=== PATIENT | male | born 1960 | race Caucasian/White ===

== ENCOUNTER 2018-10-02 12:59 | Inpatient (IN) | payer MEDICAID, OTHER ==
[~2018-10-02] VITALS: Ht 172.7 cm; Wt 75.7 kg
[2018-10-02] MEDS ORDERED: SODIUM CHLORIDE 0.9% 1,000 ML IV ONE (17:45)
[2018-10-02 17:50] LABS: EOSINOPHILS % 1.2 % (0.0-5.0); HEMATOCRIT. 47.4 % (42.0-52.0); HEMOGLOBIN. 15.8 g/dL (14.0-18.0); MEAN CORPUSCULAR HEMOGLOBIN 29.9 pg (28.0-32.0); MEAN CORPUSCULAR VOLUME 89.8 fL (80.0-94.0); MEAN PLATELET VOLUME 8.6 fl (7.4-10.4); MONOCYTES % 9.9 % (2.0-8.0); NEUTROPHILS % 60.9 % (40.0-76.0); PLATELET 240 x1000/uL (130-400); RED BLOOD CELL COUNT 5.27 mill/uL (4.7-6.1); RED CELL DISTRIBUTION WIDTH 14.7 % (11.6-14.6)
[2018-10-02 17:56] LABS: CHLORIDE 105 mEq/L (98-107)
[2018-10-02] MEDS ORDERED: HYDROCODONE/ACETAMINOPHEN 5/325MG TABLET PO ONE (18:15)
[2018-10-02] MEDS ORDERED: ASPIRIN 81MG TABLET PO ONE (18:45)
[2018-10-02] MEDS ORDERED: FUROSEMIDE 40MG/4ML VIAL IVP ONE (18:45)
[2018-10-02 20:56] LABS: CLARITY URINE CLEAR (CLEAR); COLOR URINE YELLOW (YELLOW); KETONES URINE NEGATIVE (NEGATIVE); LEUKOCYTE ESTERASE URINE NEGATIVE (NEGATIVE); NITRITE URINE NEGATIVE (NEGATIVE); OCCULT BLOOD URINE NEGATIVE (NEGATIVE); PROTEIN URINE NEGATIVE (NEGATIVE); SPECIFIC GRAVITY URINE 1.006 (1.005-1.030); UROBILINOGEN URINE 0.2 E.U./dL (0.2-1.0)
[2018-10-02] MEDS ORDERED: NA PHOS,M-B/NA PHOS,DI-BA ENEMA 118ML PR PRN (22:30)
[2018-10-02] MEDS ORDERED: DIPHENHYDRAMINE 50MG/ML VIAL IV PRN (22:30)
[2018-10-02] MEDS ORDERED: CLONIDINE 0.1MG TABLET PO PRN (22:30)
[2018-10-02] MEDS ORDERED: IPRATROPIUM/ALBUTEROL 0.5-3(2.5)MG/3ML NEB INH PRN (22:30)
[2018-10-02] MEDS ORDERED: DOCUSATE SODIUM 100MG CAPSULE PO PRN (22:30)
[2018-10-02] MEDS ORDERED: GUAIFENESIN 200MG/10ML SUGAR FREE UDC PO PRN (22:30)
[2018-10-02] MEDS ORDERED: ACETAMINOPHEN 650MG/20.3ML UDC GT PRN (22:30)
[2018-10-02] MEDS ORDERED: ACETAMINOPHEN 325MG TABLET PO PRN (22:30)
[2018-10-02] MEDS ORDERED: MAGNESIUM/ALUMINUM HYDROXIDE/SIMETHICONE 30ML UDC PO PRN (22:30)
[2018-10-02] MEDS ORDERED: ONDANSETRON HCL 4MG/2ML INJ IV PRN (22:30)
[2018-10-02] MEDS ORDERED: ACETAMINOPHEN 650MG SUPP PR PRN (22:30)
[2018-10-02 23:37] LABS: *BARBITURATES SCREEN URINE NEGATIVE (NEGATIVE)
[2018-10-02 23:38] LABS: *AMPHETAMINES SCREEN URINE PRESUMTIVE POSITIVE (NEGATIVE); *BENZODIAZEPINES SCREEN URINE NEGATIVE (NEGATIVE); *COCAINE SCREEN URINE NEGATIVE (NEGATIVE); METHADONE URINE SCREEN NEGATIVE (NEGATIVE); OPIATES URINE SCREEN NEGATIVE (NEGATIVE); PHENCYCLIDINE URINE SCREEN NEGATIVE (NEGATIVE)
[2018-10-02 23:39] LABS: CANNABINOID URINE SCREEN NEGATIVE (NEGATIVE)
[2018-10-03 00:30] VITALS: BP 131/95
[2018-10-03 00:32] VITALS: BP 131/95
[2018-10-03 04:00] VITALS: BP 116/87
[2018-10-03] MEDS: SODIUM CHLORIDE 0.9% INJ 3ML FLUSH IVF SCH ×3 (06:19→22:28)
[2018-10-03] MEDS: FUROSEMIDE 40MG/4ML VIAL IV SCH ×2 (06:19→17:42)
[2018-10-03] MEDS ORDERED: PNEUMOCOCCAL 23-VAL P-SAC VAC 0.5 ML IM ONE (08:00)
[2018-10-03 09:10] LABS: BASOPHILS % 0.8 % (0.0-2.0); HEMATOCRIT. 49.1 % (42.0-52.0); HEMOGLOBIN. 16.6 g/dL (14.0-18.0); MEAN CORPUSCULAR VOLUME 88.9 fL (80.0-94.0); MEAN PLATELET VOLUME 8.6 fl (7.4-10.4); MONOCYTES % 10.4 % (2.0-8.0); NEUTROPHILS % 73.8 % (40.0-76.0); PLATELET 235 x1000/uL (130-400); RED BLOOD CELL COUNT 5.52 mill/uL (4.7-6.1); RED CELL DISTRIBUTION WIDTH 14.7 % (11.6-14.6)
[2018-10-03] MEDS: ENOXAPARIN 40MG/0.4ML SYR SUBCUT SCH (09:36)
[2018-10-03 09:38] LABS: CHLORIDE 103 mEq/L (98-107)
[2018-10-03 09:47] LABS: LDL CHOLESTEROL 62 mg/dL (5-100)
[2018-10-03 09:48] LABS: CREATINE KINASE 54 IU/L (39-308); HDL CHOLESTEROL 42 mg/dL (40-59)
[2018-10-03 09:51] LABS: CREATINE KINASE MB FRACTION 3.3 ng/mL (0.5-3.6)
[2018-10-03] MEDS ORDERED: INFLUENZA VIRUS VACCINE(AFLURIA) 0.5ML SYR IM ONE (10:00)
[2018-10-03 11:46] LABS: T4 FREE 1.29 ng/dL (0.76-1.46)
[2018-10-03] MEDS: LOSARTAN POTASSIUM 25 MG TABLET PO SCH (14:32)
[2018-10-03 15:35] LABS: CREATINE KINASE MB FRACTION 2.9 ng/mL (0.5-3.6)
[2018-10-03] MEDS: HYDROCODONE/ACETAMINOPHEN 5/325MG TABLET PO PRN (19:32)
[2018-10-03 20:00] VITALS: BP 114/78
[2018-10-03] MEDS: CARVEDILOL 3.125 MG TABLET PO SCH (22:28)
[2018-10-04] VITALS (7 sets, daily range): BP systolic 82–125; BP diastolic 52–91
[2018-10-04] MEDS: SODIUM CHLORIDE 0.9% INJ 3ML FLUSH IVF SCH ×2 (05:13→14:00)
[2018-10-04] MEDS: LOSARTAN POTASSIUM 25 MG TABLET PO SCH (09:04)
[2018-10-04] MEDS: CARVEDILOL 3.125 MG TABLET PO SCH (09:04)
[2018-10-04] MEDS: FUROSEMIDE 40MG/4ML VIAL IV SCH ×2 (09:05→17:00)
[2018-10-04] MEDS: ENOXAPARIN 40MG/0.4ML SYR SUBCUT SCH (09:05)
[2018-10-04] MEDS: HYDROCODONE/ACETAMINOPHEN 5/325MG TABLET PO PRN (10:19)
[2018-10-04] MEDS ORDERED: COR3 PO (12:35)
[2018-10-04] MEDS ORDERED: LOSA25TA3 PO (12:35)
[2018-10-04] MEDS ORDERED: FURO-151 MT (12:37)
== END 2018-10-04 20:05 | disposition home or self-care (01) | DRG 194 ==
LOC: ER 13:01 → EDBEDREQ 22:18 → ENRESERV 23:18 → 5WST 10-03 01:47
PROVIDERS: ADMIT Family Medicine; ATTEND Family Medicine
DX: I11.0 Hypertensive heart disease with heart failure (principal); E44.1 Mild protein-calorie malnutrition; I50.9 Heart failure, unspecified; F17.200 Nicotine dependence, unspecified, uncomplicated; L97.529 Non-pressure chronic ulcer of other part of left foot with unspecified severity; F10.10 Alcohol abuse, uncomplicated; F15.10 Other stimulant abuse, uncomplicated; L97.428 Non-pressure chronic ulcer of left heel and midfoot with other specified severity; Z68.25 Body mass index [BMI] 25.0-25.9, adult; W89.0XXA Exposure to welding light (arc), initial encounter; Y93.89 Activity, other specified; Y92.89 Other specified places as the place of occurrence of the external cause; Y99.8 Other external cause status
CPT/HCPCS: 36415; 71045; 80061; 80305; 82550; 82553; 83036; 83605; 83880; 84439; 84443; 84484; 85379; 93005; 93306; 93970; 96374; 99285; J1650; J1940; J7030

== ENCOUNTER 2019-03-17 15:44 | Emergency (ER) | payer MEDICAID ==
[~2019-03-17] VITALS: Ht 172.7 cm; Wt 72.0 kg
[~2019-03-17 15:44] MED LIST: COR3 PO; FURO-151 MT; LOSA25TA3 PO
[2019-03-17] MEDS ORDERED: IBUPROFEN 600MG TABLET PO ONE (16:30)
[2019-03-17 16:41] VITALS: BP 90/51
== END 2019-03-17 17:41 | disposition home or self-care (01) ==
LOC: ER 15:53
DX: M25.552 Pain in left hip (principal); Z79.899 Other long term (current) drug therapy
CPT/HCPCS: 73502; 99283

== ENCOUNTER 2019-10-16 20:11 | Inpatient (IN) | payer MEDICAID, OTHER ==
[~2019-10-16] VITALS: Ht 167.6 cm; Wt 83.0 kg
[2019-10-16] MEDS ORDERED: IBUPROFEN 600MG TABLET PO STA (21:32)
[2019-10-16 21:59] LABS: EOSINOPHILS % 3.7 % (0.0-5.0); HEMATOCRIT. 44.8 % (42.0-52.0); HEMOGLOBIN. 14.8 g/dL (14.0-18.0); LYMPHOCYTES % 33.7 % (20.0-50.0); MEAN CORPUSCULAR HEMOGLOBIN 29.2 pg (28.0-32.0); MEAN CORPUSCULAR VOLUME 87.9 fL (80.0-94.0); MEAN PLATELET VOLUME 8.9 fl (7.4-10.4); MONOCYTES % 6.1 % (2.0-8.0); NEUTROPHILS % 55.5 % (40.0-76.0); PLATELET 257 x1000/uL (130-400); RED BLOOD CELL COUNT 5.09 mill/uL (4.7-6.1); RED CELL DISTRIBUTION WIDTH 15.1 % (11.6-14.6)
[2019-10-16 22:01] LABS: CHLORIDE 105 mEq/L (98-107)
[2019-10-16] MEDS ORDERED: ASPIRIN 81MG TABLET PO ONE (22:30)
[2019-10-16] MEDS ORDERED: FUROSEMIDE 40MG/4ML VIAL IVP ONE (22:30)
[2019-10-17] VITALS (7 sets, daily range): BP systolic 105–142; BP diastolic 70–108
[2019-10-17 00:54] LABS: CLARITY URINE CLEAR (CLEAR); COLOR URINE YELLOW (YELLOW); KETONES URINE NEGATIVE (NEGATIVE); LEUKOCYTE ESTERASE URINE NEGATIVE (NEGATIVE); NITRITE URINE NEGATIVE (NEGATIVE); OCCULT BLOOD URINE NEGATIVE (NEGATIVE); PROTEIN URINE 1+ (NEGATIVE); SPECIFIC GRAVITY URINE 1.013 (1.005-1.030); UROBILINOGEN URINE 0.2 E.U./dL (0.2-1.0)
[2019-10-17] MEDS ORDERED: HYDROCODONE/ACETAMINOPHEN 5/325MG TABLET PO PRN (02:45)
[2019-10-17] MEDS ORDERED: ONDANSETRON HCL 4MG/2ML INJ IV PRN (02:45)
[2019-10-17] MEDS ORDERED: ACETAMINOPHEN 325MG TABLET PO PRN (02:45)
[2019-10-17] MEDS ORDERED: CLONIDINE 0.1MG TABLET PO PRN (02:45)
[2019-10-17] MEDS ORDERED: MAGNESIUM/ALUMINUM HYDROXIDE/SIMETHICONE 30ML UDC PO PRN (02:45)
[2019-10-17] MEDS ORDERED: MORPHINE SULFATE 2 MG/ML CPJ (NOT FOR IM USE) IV PRN (02:45)
[2019-10-17] MEDS: FUROSEMIDE 40MG/4ML VIAL IV SCH (11:38)
[2019-10-17] MEDS: ENOXAPARIN 40MG/0.4ML SYR SUBCUT SCH (11:38)
[2019-10-17] MEDS: CARVEDILOL 3.125 MG TABLET PO SCH ×2 (11:38→20:24)
[2019-10-17] MEDS ORDERED: PNEUMOCOCCAL 23-VAL P-SAC VAC 0.5 ML IM ONE (12:30)
[2019-10-17] MEDS ORDERED: INFLUENZA VIRUS VACCINE(AFLURIA) 0.5ML SYR IM ONE (12:30)
[2019-10-18] VITALS (9 sets, daily range): BP systolic 106–128; BP diastolic 62–91
[2019-10-18 06:19] LABS: BASOPHILS % 1.2 % (0.0-2.0); EOSINOPHILS % 3.5 % (0.0-5.0); HEMATOCRIT. 46.2 % (42.0-52.0); HEMOGLOBIN. 14.9 g/dL (14.0-18.0); LYMPHOCYTES % 29.7 % (20.0-50.0); MEAN CORPUSCULAR HEMOGLOBIN 28.3 pg (28.0-32.0); MEAN CORPUSCULAR VOLUME 87.6 fL (80.0-94.0); MEAN PLATELET VOLUME 8.8 fl (7.4-10.4); MONOCYTES % 7.3 % (2.0-8.0); NEUTROPHILS % 58.3 % (40.0-76.0); PLATELET 231 x1000/uL (130-400); RED BLOOD CELL COUNT 5.27 mill/uL (4.7-6.1)
[2019-10-18 06:36] LABS: CHLORIDE 105 mEq/L (98-107)
[2019-10-18 06:43] LABS: LDL CHOLESTEROL 47 mg/dL (5-100)
[2019-10-18 06:44] LABS: HDL CHOLESTEROL 34 mg/dL (40-59)
[2019-10-18] MEDS: CARVEDILOL 3.125 MG TABLET PO SCH (09:11)
[2019-10-18] MEDS: FUROSEMIDE 40MG/4ML VIAL IV SCH (09:11)
[2019-10-18] MEDS: ENOXAPARIN 40MG/0.4ML SYR SUBCUT SCH (11:30)
[2019-10-25] MEDS ORDERED: AZIT250T12 PO (17:28)
[2019-10-25] MEDS ORDERED: FAMO-133 PO (17:28)
[2019-10-25] MEDS ORDERED: LISI10TA5 PO (17:28)
[2019-10-25] MEDS ORDERED: MONT10TA26 PO (17:28)
[2019-10-25] MEDS ORDERED: P20 PO (17:28)
== END 2019-10-18 14:13 | disposition home or self-care (01) | DRG 194 ==
LOC: ER 20:11 → 3WST 23:44 → EDBEDREQTM 23:51 → EDBEDREQ 23:51 → ENRESERV 10-17 10:08
PROVIDERS: ADMIT Hospitalist; ATTEND Hospitalist
DX: I13.0 Hypertensive heart and chronic kidney disease with heart failure and stage 1 through stage 4 chronic kidney disease, or unspecified chronic kidney disease (principal); N17.9 Acute kidney failure, unspecified; F15.10 Other stimulant abuse, uncomplicated; N18.9 Chronic kidney disease, unspecified; Z87.891 Personal history of nicotine dependence; Z91.14 Patient's other noncompliance with medication regimen; E44.1 Mild protein-calorie malnutrition; I50.23 Acute on chronic systolic (congestive) heart failure
CPT/HCPCS: 36415; 71045; 80053; 80061; 81003; 82550; 83880; 84484; 85025; 90686; 90732; 93005; 93306; 93970; 99285; J1650; J1940; J2405

== ENCOUNTER 2019-11-04 00:06 | Inpatient (IN) | payer MEDICAID, OTHER ==
[~2019-11-04] VITALS: Ht 165.1 cm; Wt 72.6 kg
[~2019-11-04 00:06] MED LIST changes: +AZIT250T12 PO; +FAMO-133 PO; +LISI10TA5 PO; +MONT10TA26 PO; +P20 PO
[2019-11-04 01:35] LABS: BASOPHILS % 0.1 % (0.0-2.0); EOSINOPHILS % 0.1 % (0.0-5.0); HEMATOCRIT. 45.6 % (42.0-52.0); HEMOGLOBIN. 14.8 g/dL (14.0-18.0); LYMPHOCYTES % 14.1 % (20.0-50.0); MEAN CORPUSCULAR HEMOGLOBIN 28.5 pg (28.0-32.0); MEAN CORPUSCULAR VOLUME 87.6 fL (80.0-94.0); MEAN PLATELET VOLUME 8.8 fl (7.4-10.4); NEUTROPHILS % 78.7 % (40.0-76.0); PLATELET 198 x1000/uL (130-400); RED CELL DISTRIBUTION WIDTH 16.1 % (11.6-14.6)
[2019-11-04 01:44] LABS: CHLORIDE 104 mEq/L (98-107)
[2019-11-04 04:21] LABS: CLARITY URINE CLEAR (CLEAR); COLOR URINE YELLOW (YELLOW); KETONES URINE NEGATIVE (NEGATIVE); LEUKOCYTE ESTERASE URINE NEGATIVE (NEGATIVE); NITRITE URINE NEGATIVE (NEGATIVE); OCCULT BLOOD URINE NEGATIVE (NEGATIVE); PROTEIN URINE 2+ (NEGATIVE); SPECIFIC GRAVITY URINE 1.023 (1.005-1.030)
[2019-11-04] MEDS ORDERED: FUROSEMIDE 20MG/2ML VIAL IVP ONE (04:30)
[2019-11-04] MEDS ORDERED: MORPHINE SULFATE 4 MG/ML CPJ (NOT FOR IM USE) IV ONE (04:30)
[2019-11-04] MEDS ORDERED: ONDANSETRON HCL 4MG/2ML INJ IV ONE (04:30)
[2019-11-04] MEDS ORDERED: ACETAMINOPHEN 325MG TABLET PO PRN (09:00)
[2019-11-04] MEDS ORDERED: ONDANSETRON HCL 4MG/2ML INJ IV PRN (09:00)
[2019-11-04] MEDS ORDERED: MORPHINE SULFATE 4 MG/ML CPJ (NOT FOR IM USE) IV SCH (09:00)
[2019-11-04] MEDS ORDERED: ONDANSETRON HCL 4MG/2ML INJ IV SCH (09:00)
[2019-11-04] MEDS: FUROSEMIDE 40MG/4ML VIAL IVP SCH ×2 (09:10→18:15)
[2019-11-04] MEDS: CARVEDILOL 6.25 MG TABLET PO SCH ×2 (09:34→21:26)
[2019-11-04] MEDS: SPIRONOLACTONE 25MG TABLET PO SCH (09:34)
[2019-11-04] MEDS: LOSARTAN POTASSIUM 25 MG TABLET PO SCH (09:35)
[2019-11-04 13:40] VITALS: BP 106/82
[2019-11-04 16:00] VITALS: BP 114/89
[2019-11-04] MEDS ORDERED: CARV10CP PO (16:04)
[2019-11-04 20:00] VITALS: BP 112/82
[2019-11-05] VITALS: BP 112/82
[2019-11-05 04:00] VITALS: BP 104/80
[2019-11-05 06:56] LABS: BASOPHILS % 0.6 % (0.0-2.0); EOSINOPHILS % 1.3 % (0.0-5.0); HEMATOCRIT. 45.9 % (42.0-52.0); HEMOGLOBIN. 15.1 g/dL (14.0-18.0); LYMPHOCYTES % 25.9 % (20.0-50.0); MEAN CORPUSCULAR HEMOGLOBIN 28.8 pg (28.0-32.0); MEAN CORPUSCULAR VOLUME 87.7 fL (80.0-94.0); MEAN PLATELET VOLUME 8.9 fl (7.4-10.4); NEUTROPHILS % 66.2 % (40.0-76.0); PLATELET 173 x1000/uL (130-400); RED BLOOD CELL COUNT 5.24 mill/uL (4.7-6.1); RED CELL DISTRIBUTION WIDTH 16.4 % (11.6-14.6)
[2019-11-05 07:01] LABS: CHLORIDE 103 mEq/L (98-107)
[2019-11-05 08:00] VITALS: BP 119/85
[2019-11-05] MEDS: CARVEDILOL 6.25 MG TABLET PO SCH ×2 (08:58→21:26)
[2019-11-05] MEDS: SPIRONOLACTONE 25MG TABLET PO SCH (08:58)
[2019-11-05] MEDS: LOSARTAN POTASSIUM 25 MG TABLET PO SCH (08:58)
[2019-11-05] MEDS: FUROSEMIDE 40MG/4ML VIAL IVP SCH ×2 (08:58→17:00)
[2019-11-05 12:00] VITALS: BP 98/65
[2019-11-05 16:00] VITALS: BP 94/68
[2019-11-05 20:00] VITALS: BP 124/64
[2019-11-06] VITALS: BP 103/70
[2019-11-06 04:00] VITALS: BP 103/74
[2019-11-06 08:00] VITALS: BP 114/81
[2019-11-06] MEDS: SPIRONOLACTONE 25MG TABLET PO SCH (08:44)
[2019-11-06] MEDS: FUROSEMIDE 40MG/4ML VIAL IVP SCH ×2 (08:44→17:28)
[2019-11-06] MEDS: LOSARTAN POTASSIUM 25 MG TABLET PO SCH (08:46)
[2019-11-06] MEDS: CARVEDILOL 6.25 MG TABLET PO SCH (08:46)
[2019-11-06 12:00] VITALS: BP 92/48
[2019-11-06] MEDS ORDERED: SPIR25TA PO (12:31)
[2019-11-06] MEDS ORDERED: LOSA25TA3 PO (12:31)
[2019-11-06] MEDS ORDERED: FURO-151 MT (12:31)
[2019-11-06] MEDS ORDERED: CARV10CP PO (12:31)
[2019-11-06 12:37] VITALS: BP 92/60
[2019-11-06 12:49] LABS: *COCAINE SCREEN URINE NEGATIVE (NEGATIVE)
[2019-11-06 12:50] LABS: *AMPHETAMINES SCREEN URINE NEGATIVE (NEGATIVE); *BARBITURATES SCREEN URINE NEGATIVE (NEGATIVE); *BENZODIAZEPINES SCREEN URINE NEGATIVE (NEGATIVE); CANNABINOID URINE SCREEN NEGATIVE (NEGATIVE); METHADONE URINE SCREEN NEGATIVE (NEGATIVE); OPIATES URINE SCREEN NEGATIVE (NEGATIVE); PHENCYCLIDINE URINE SCREEN NEGATIVE (NEGATIVE)
[2019-11-06 16:00] VITALS: BP 92/60
== END 2019-11-06 19:00 | disposition home or self-care (01) | DRG 194 ==
LOC: ER 00:06 → 6WST 05:09 → EDBEDREQ 05:12 → ENRESERV 12:26
PROVIDERS: ADMIT Internal Medicine; ATTEND Internal Medicine
DX: I11.0 Hypertensive heart disease with heart failure (principal); J96.00 Acute respiratory failure, unspecified whether with hypoxia or hypercapnia; I50.23 Acute on chronic systolic (congestive) heart failure; I42.9 Cardiomyopathy, unspecified; E44.1 Mild protein-calorie malnutrition; J44.9 Chronic obstructive pulmonary disease, unspecified; E11.9 Type 2 diabetes mellitus without complications; K74.60 Unspecified cirrhosis of liver; F17.210 Nicotine dependence, cigarettes, uncomplicated; Z79.2 Long term (current) use of antibiotics; Z79.899 Other long term (current) drug therapy; Z71.6 Tobacco abuse counseling; Z68.26 Body mass index [BMI] 26.0-26.9, adult
CPT/HCPCS: 36415; 71045; 80048; 80053; 80305; 81003; 83880; 84145; 84484; 85025; 93005; 97116; 97162; 99285; J1940; J2270; J2405

== ENCOUNTER 2020-01-21 15:52 | Emergency (ER) | payer MEDICAID ==
[~2020-01-21] VITALS: Ht 177.8 cm; Wt 73.0 kg
[~2020-01-21 15:52] MED LIST changes: -AZIT250T12 PO; +CARV10CP PO; -COR3 PO; -FAMO-133 PO; -LISI10TA5 PO; -P20 PO; +SPIR25TA PO
[2020-01-21] MEDS ORDERED: HYDROCODONE/ACETAMINOPHEN 5/325MG TABLET PO ONE (16:45)
[2020-01-21] MEDS ORDERED: TETANUS, DIPHTHERIA, PERTUSSIS VAC/PF 0.5ML (>7YR OLD) IM ONE (16:45)
[2020-01-21] MEDS ORDERED: BACITRACIN ZINC OINT UDPKT TOP ONE (16:45)
[2020-01-21 18:41] VITALS: BP 115/75
== END 2020-01-21 18:42 | disposition home or self-care (01) ==
LOC: ER 15:52
DX: S16.1XXA Strain of muscle, fascia and tendon at neck level, initial encounter (principal); S00.81XA Abrasion of other part of head, initial encounter; I11.0 Hypertensive heart disease with heart failure; I50.9 Heart failure, unspecified; Z79.899 Other long term (current) drug therapy; V29.88XA Motorcycle rider (driver) (passenger) injured in other specified transport accidents, initial encounter; Y93.89 Activity, other specified; Y92.89 Other specified places as the place of occurrence of the external cause; Y99.8 Other external cause status
CPT/HCPCS: 70486; 90471; 90715; 99285

== ENCOUNTER 2020-08-23 18:54 | Inpatient (IN) | payer OTHER ==
[~2020-08-23] VITALS: Ht 167.6 cm; Wt 69.5 kg
[~2020-08-23 18:54] MED LIST changes: +ASPI-1160 PO; +CARV12.545 MT; +LOSA25TA26 MT; -MONT10TA26 PO; +MONT10TA32 PO; +POTA20TA82 MT
[2020-08-23] MEDS ORDERED: IBUPROFEN 600MG TABLET PO STA (19:58)
[2020-08-23 20:33] LABS: BASOPHILS % 1.2 % (0.0-2.0); CHLORIDE 106 mEq/L (98-107); EOSINOPHILS % 1.8 % (0.0-5.0); HEMATOCRIT. 44.6 % (42.0-52.0); HEMOGLOBIN. 14.7 g/dL (14.0-18.0); LYMPHOCYTES % 31.4 % (20.0-50.0); MEAN CORPUSCULAR HEMOGLOBIN 29.5 pg (28.0-32.0); MEAN CORPUSCULAR VOLUME 89.1 fL (80.0-94.0); MEAN PLATELET VOLUME 8.8 fl (7.4-10.4); MONOCYTES % 8.6 % (2.0-8.0); PLATELET 195 x1000/uL (130-400); RED CELL DISTRIBUTION WIDTH 14.3 % (11.6-14.6)
[2020-08-23] MEDS ORDERED: ASPIRIN 81MG TABLET PO ONE (21:15)
[2020-08-23] MEDS ORDERED: FUROSEMIDE 40MG/4ML VIAL IVP ONE (21:15)
[2020-08-24 02:40] VITALS: BP 137/101
[2020-08-24 04:00] VITALS: BP 118/84
[2020-08-24 07:10] LABS: BASOPHILS % 0.9 % (0.0-2.0); EOSINOPHILS % 2.2 % (0.0-5.0); HEMATOCRIT. 45.4 % (42.0-52.0); HEMOGLOBIN. 14.7 g/dL (14.0-18.0); LYMPHOCYTES % 36.4 % (20.0-50.0); MEAN CORPUSCULAR HEMOGLOBIN 29.2 pg (28.0-32.0); MEAN PLATELET VOLUME 9.1 fl (7.4-10.4); MONOCYTES % 8.8 % (2.0-8.0); NEUTROPHILS % 51.7 % (40.0-76.0); PLATELET 194 x1000/uL (130-400); RED BLOOD CELL COUNT 5.04 mill/uL (4.7-6.1); RED CELL DISTRIBUTION WIDTH 14.4 % (11.6-14.6)
[2020-08-24 07:40] LABS: CHLORIDE 106 mEq/L (98-107)
[2020-08-24 08:00] VITALS: BP 137/97
[2020-08-24] MEDS: LOSARTAN POTASSIUM 100 MG TABLET PO SCH (08:50)
[2020-08-24] MEDS: ASPIRIN 81MG TABLET PO SCH (08:50)
[2020-08-24] MEDS: SPIRONOLACTONE 25MG TABLET PO SCH (08:51)
[2020-08-24] MEDS: FUROSEMIDE 40MG TABLET PO SCH ×2 (08:51→21:08)
[2020-08-24] MEDS: CARVEDILOL 12.5MG TABLET PO SCH ×2 (08:51→21:00)
[2020-08-24] MEDS: POTASSIUM CHLORIDE 20MEQ TABLET SR PO SCH (08:52)
[2020-08-24 12:00] VITALS: BP 137/97
[2020-08-24 16:00] VITALS: BP 108/79
[2020-08-24] MEDS: MONTELUKAST SODIUM 10MG TABLET PO SCH (16:49)
[2020-08-24 20:00] VITALS: BP 108/77
[2020-08-24] MEDS: ATORVASTATIN CALCIUM 40MG TABLET PO SCH (21:08)
[2020-08-24 21:36] LABS: *AMPHETAMINES SCREEN URINE PRESUMTIVE POSITIVE (NEGATIVE); *BARBITURATES SCREEN URINE NEGATIVE (NEGATIVE); *BENZODIAZEPINES SCREEN URINE NEGATIVE (NEGATIVE); *COCAINE SCREEN URINE NEGATIVE (NEGATIVE)
[2020-08-24 21:37] LABS: CANNABINOID URINE SCREEN NEGATIVE (NEGATIVE); METHADONE URINE SCREEN NEGATIVE (NEGATIVE); OPIATES URINE SCREEN NEGATIVE (NEGATIVE)
[2020-08-24 21:38] LABS: PHENCYCLIDINE URINE SCREEN NEGATIVE (NEGATIVE)
[2020-08-25] VITALS: BP 116/86
[2020-08-25] MEDS: HYDROCODONE/ACETAMINOPHEN 5/325MG TABLET PO PRN ×2 (00:45→06:17)
[2020-08-25 07:03] VITALS: BP 121/80
[2020-08-25 08:30] VITALS: BP 123/94
[2020-08-25] MEDS: LOSARTAN POTASSIUM 100 MG TABLET PO SCH (09:09)
[2020-08-25] MEDS: ASPIRIN 81MG TABLET PO SCH (09:09)
[2020-08-25] MEDS: SPIRONOLACTONE 25MG TABLET PO SCH (09:10)
[2020-08-25] MEDS: FUROSEMIDE 40MG TABLET PO SCH ×2 (09:10→22:04)
[2020-08-25] MEDS: CARVEDILOL 12.5MG TABLET PO SCH ×2 (09:10→21:00)
[2020-08-25] MEDS: POTASSIUM CHLORIDE 20MEQ TABLET SR PO SCH (09:13)
[2020-08-25 12:00] VITALS: BP 108/70
[2020-08-25] MEDS ORDERED: LOSA25TA3 PO (15:26)
[2020-08-25] MEDS ORDERED: FURO-151 MT (15:26)
[2020-08-25] MEDS ORDERED: SPIR25TA PO (15:26)
[2020-08-25] MEDS ORDERED: ASPI-1160 PO (15:26)
[2020-08-25] MEDS ORDERED: POTA20TA82 MT (15:27)
[2020-08-25] MEDS ORDERED: CARV12.545 MT (15:27)
[2020-08-25 16:00] VITALS: BP 103/71
[2020-08-25] MEDS: MONTELUKAST SODIUM 10MG TABLET PO SCH (16:32)
[2020-08-25 20:00] VITALS: BP 103/73
[2020-08-25] MEDS: ATORVASTATIN CALCIUM 40MG TABLET PO SCH (22:04)
[2020-08-26] VITALS: BP 106/68
[2020-08-26 04:55] VITALS: BP 124/63
[2020-08-26 07:56] VITALS: BP 120/88
[2020-08-26] MEDS: FUROSEMIDE 40MG TABLET PO SCH (08:18)
[2020-08-26] MEDS: ASPIRIN 81MG TABLET PO SCH (08:18)
[2020-08-26] MEDS: POTASSIUM CHLORIDE 20MEQ TABLET SR PO SCH (08:18)
[2020-08-26] MEDS: SPIRONOLACTONE 25MG TABLET PO SCH (08:18)
[2020-08-26] MEDS: LOSARTAN POTASSIUM 100 MG TABLET PO SCH (08:18)
[2020-08-26] MEDS: CARVEDILOL 12.5MG TABLET PO SCH ×2 (08:19→20:53)
[2020-08-26 11:52] VITALS: BP 108/63
[2020-08-26] MEDS ORDERED: LIDOCAINE HCL 1% 20ML VIAL (Pyxis) INJ ONE (14:25)
[2020-08-26] MEDS ORDERED: SODIUM BICARBONATE 4% (2.4MEQ) 5ML VIAL IV ONE (14:25)
[2020-08-26 16:25] VITALS: BP 116/62
[2020-08-26] MEDS: MONTELUKAST SODIUM 10MG TABLET PO SCH (16:46)
[2020-08-26] MEDS ORDERED: FUROSEMIDE 40MG/4ML VIAL IVP NR (18:15)
[2020-08-26 20:00] VITALS: BP 100/63
[2020-08-26 20:45] LABS: BASOPHILS % 0.5 % (0.0-2.0); EOSINOPHILS % 1.8 % (0.0-5.0); HEMATOCRIT. 47.8 % (42.0-52.0); HEMOGLOBIN. 15.7 g/dL (14.0-18.0); LYMPHOCYTES % 29.6 % (20.0-50.0); MEAN CORPUSCULAR HEMOGLOBIN 29.2 pg (28.0-32.0); MEAN PLATELET VOLUME 9.1 fl (7.4-10.4); MONOCYTES % 9.6 % (2.0-8.0); NEUTROPHILS % 58.5 % (40.0-76.0); PLATELET 218 x1000/uL (130-400); RED BLOOD CELL COUNT 5.37 mill/uL (4.7-6.1); RED CELL DISTRIBUTION WIDTH 14.6 % (11.6-14.6)
[2020-08-26] MEDS: ATORVASTATIN CALCIUM 40MG TABLET PO SCH (21:41)
[2020-08-27] VITALS: BP 115/84
[2020-08-27] MEDS: HYDROCODONE/ACETAMINOPHEN 5/325MG TABLET PO PRN (02:49)
[2020-08-27 04:00] VITALS: BP 103/68
[2020-08-27 08:36] VITALS: BP 102/66
[2020-08-27] MEDS: CARVEDILOL 12.5MG TABLET PO SCH (09:00)
[2020-08-27] MEDS: LOSARTAN POTASSIUM 100 MG TABLET PO SCH (09:00)
[2020-08-27] MEDS: FUROSEMIDE 40MG/4ML VIAL IVP SCH ×2 (10:01→17:26)
[2020-08-27] MEDS: ASPIRIN 81MG TABLET PO SCH (10:01)
[2020-08-27] MEDS: SPIRONOLACTONE 25MG TABLET PO SCH (10:02)
[2020-08-27] MEDS: POTASSIUM CHLORIDE 20MEQ TABLET SR PO SCH (10:02)
[2020-08-27 12:00] VITALS: BP 105/71
[2020-08-27 16:00] VITALS: BP 102/66
[2020-08-27 17:15] VITALS: BP 101/66
[2020-08-27] MEDS: MONTELUKAST SODIUM 10MG TABLET PO SCH (17:27)
== END 2020-08-27 19:50 | disposition home health service (06) | DRG 351 ==
LOC: ER 18:54 → MICUSO 22:28 → 6WST 08-24 01:37
PROVIDERS: ADMIT Internal Medicine; ATTEND Internal Medicine
PROC: 0S9C3ZX Drainage of Right Knee Joint, Percutaneous Approach, Diagnostic (ICD-10-PCS; principal; 2020-08-26)
DX: M17.11 Unilateral primary osteoarthritis, right knee (principal); I11.0 Hypertensive heart disease with heart failure; I50.23 Acute on chronic systolic (congestive) heart failure; I42.9 Cardiomyopathy, unspecified; I25.10 Atherosclerotic heart disease of native coronary artery without angina pectoris; K74.60 Unspecified cirrhosis of liver; M25.461 Effusion, right knee; J44.9 Chronic obstructive pulmonary disease, unspecified; M54.5 Low back pain; F15.90 Other stimulant use, unspecified, uncomplicated; F17.210 Nicotine dependence, cigarettes, uncomplicated; Z79.84 Long term (current) use of oral hypoglycemic drugs; Z79.899 Other long term (current) drug therapy; Z71.51 Drug abuse counseling and surveillance of drug abuser; Z71.6 Tobacco abuse counseling
CPT/HCPCS: 20611; 36415; 71045; 73560; 80048; 80053; 80305; 83880; 84484; 85025; 93005; 96374; 97116; 97162; 99285; J1940; J3490